=== PATIENT | female | born 1950 | race Caucasian/White ===

== ENCOUNTER 2022-07-30 11:27 | Emergency (ER) | payer MEDICARE, BC ==
[2022-07-30] MEDS ORDERED: Ketorolac Tromethamine 30 MG/ML VIAL ONE (14:46)
[2022-07-30] MEDS ORDERED: Fentanyl 100 MCG/2 ML VIAL ONE (14:46)
== END 2022-07-30 16:18 | disposition home or self-care (01) ==
LOC: ERS 11:27
DX: M25.552 Pain in left hip (principal); E78.5 Hyperlipidemia, unspecified; E03.9 Hypothyroidism, unspecified; I10 Essential (primary) hypertension
CPT/HCPCS: 72192; 96374; 96375; J1885; J3010

== ENCOUNTER 2022-08-04 12:48 | Outpatient (CLI) | payer MEDICARE, BC | END 2022-08-04 12:49 | disposition home or self-care (01) | LOC: SCSMRI 12:48 | PROVIDERS: ATTEND Neurological Surgery | DX: M54.50 Low back pain, unspecified (principal); M25.552 Pain in left hip; M47.816 Spondylosis without myelopathy or radiculopathy, lumbar region; M47.817 Spondylosis without myelopathy or radiculopathy, lumbosacral region; M47.815 Spondylosis without myelopathy or radiculopathy, thoracolumbar region; S76.012A Strain of muscle, fascia and tendon of left hip, initial encounter; S39.012A Strain of muscle, fascia and tendon of lower back, initial encounter; S73.192A Other sprain of left hip, initial encounter; S30.0XXA Contusion of lower back and pelvis, initial encounter; Z98.890 Other specified postprocedural states | CPT/HCPCS: 72158; 82565 ==